=== PATIENT | female | born 1950 | race Caucasian/White ===

== ENCOUNTER → 2016-09-01 | Outpatient (CLI) | payer OTHER, MEDICARE | LOC: BMCIMAGING 10:12 | DX: Z12.31 Encounter for screening mammogram for malignant neoplasm of breast (principal); Z80.3 Family history of malignant neoplasm of breast | CPT/HCPCS: G0202 ==

== ENCOUNTER → 2017-09-24 | Outpatient (CLI) | payer OTHER, MEDICARE | LOC: BMCIMAGING 09:18 | PROVIDERS: ATTEND Internal Medicine | DX: Z12.31 Encounter for screening mammogram for malignant neoplasm of breast (principal); Z80.3 Family history of malignant neoplasm of breast ==

== ENCOUNTER → 2017-10-13 | Outpatient (CLI) | payer OTHER, MEDICARE | LOC: BMCIMAGING 10:38 | PROVIDERS: ATTEND Internal Medicine | DX: R92.8 Other abnormal and inconclusive findings on diagnostic imaging of breast (principal) ==

== ENCOUNTER → 2018-01-27 | Outpatient (CLI) | payer OTHER, MEDICARE | DX: M17.0 Bilateral primary osteoarthritis of knee (principal) ==

== ENCOUNTER 2018-02-22 07:15 | Observation (INO) | payer OTHER, MEDICARE ==
--- NOTE | 2018-02-22 06:47 | PDIAF ---
- Diagnosis Diagnosis: right knee djd Code Status: Full Code - Medication Management Discharge Medications: Medications to Continue on Transfer Aspirin [Aspirin 81mg (*)] 81 mg PO HS 01/25/18 [Last Taken Unknown] Calcium Carbonate [Oyster Shell Calcium 500 mg (*)] 500 mg PO BID 01/25/18 [ Last Taken Unknown] Cholecalciferol Vit D3 [Vitamin D3 (*)] 1,000 units PO BID 01/25/18 [Last Taken Unknown] Cyanocobalamin [Vitamin B12 (*)] 1,000 mcg PO DAILY 01/25/18 [Last Taken Unknown ] FLUoxetine [Prozac 20 MG (*)] 20 mg PO DAILY 01/25/18 [Last Taken Unknown] Pantoprazole Sodium [Protonix 40mg (*)] 40 mg PO HS 01/25/18 [Last Taken Unknown ] Discharge Medications: Refer to the Discharge Home Medication list for PRN reason. - Orders Services needed: Physical Therapy Isolation Type: None Diet Recommendation: no restrictions on diet Diet Texture: Regular Texture Diet Additional Instructions: TOTAL JOINT ARTHROPLASTY DISCHARGE INSTRUCTIONS 1. Your surgeon follows the [facility] protocol for reducing your risk of DVT (blood clots) following surgery. Medication will be ordered to prevent blood clots. A sudden increase in calf pain and/or swelling could indicate a blood clot in your leg. If this occurs, please call your surgeon or his/her radiology physician assistant. An ultrasound of the leg may be necessary to diagnose a blood clot. If you have conditions that make you a higher risk for blood clots, your surgeon may use more aggressive ways to prevent them. Notify your surgeon if you think you are a high risk for blood clots. 2. Wear your white surgical stockings (JAVIER hose) for 2 weeks. This decreases your swelling and may help prevent blood clots. It is ok to remove JAVIER hose at night time to give your legs a break. 3. Swelling and bruising in the surgical leg is common. If you feel that it is excessive, please notify your surgeon. 4. Elevate your surgical leg with the ankle above the hip several times every day. Please keep the leg straight when you elevate by putting pillows under your foot. Do not put pillows under your knee. This will make being able to fully straighten more difficult. This is uncomfortable, but try to do it as much as possible. 5. For total knee replacements use compressive wrap on your knee for 3-5 days after surgery, then you can discontinue it. 6. Use a walker or crutches for 1-2 weeks. Progress your weight-bearing as tolerated. You may start to use a cane when you feel stable and safe. 7. You will receive physical therapy instructions in the hospital. Continue those exercises at home. There are additional exercises in the total joint booklet you were given before surgery. Outpatient physical therapy will begin 7- 10 days after surgery. Please schedule this in advance. 8. Use ice on your knee at least 3-5 times every day for 30 minutes. This helps reduce pain and swelling. Also use it at night before falling asleep. 9. Leave your surgical dressing in place for 2 weeks. Your dressing is water resistant, but not waterproof. Cover it with Saran Wrap or Eyiix-v-Mspn before showering. You may shower as soon as you feel safe entering a shower. If you notice bleeding from your incision 2 or 3 days after surgery, please notify your surgeon. 10. Due to narcotics, decreased activity and altered diet, most patients experience constipation after surgery. Use dtyo-boa-ecvogze stool softeners while you are on narcotics. 11. You may drive a car when you are comfortable bearing weight, have good muscular control of your leg and are off narcotics. This usually occurs 2-4 weeks after surgery, depending on which leg was operated on. 12. If there are questions not addressed here, please refer the [facility] book given for more information. If you still have questions, please contact your surgeon s office. 13. If you have a life-threatening emergency, please call 911 and go to the emergency room immediately. For non-life threatening emergencies, please call your physicians office for advice before going to the emergency room. - Follow Up Care Current Providers and Referrals: Joaquín Fernando MD [Primary Care Provider] -
--- NOTE | 2018-02-22 06:47 | PDHPUP ---
History & Physical Update H&P update statement: This history and physical update is based on an assessment of the patient which was completed after admission or registration (within 24 hours), but prior to the surgery/procedure. H&P update: no change in patient's condition since H&P completed
[~2018-02-22 07:15] MED LIST: ROPIVACAINE 0.2% 80 MG, EPINEPHrine 0.2 MG, KETOROLAC TROMETHAMINE 30 MG, morphINE 10 M... IU ONE; TRANEXAMIC ACID 1,000 MG in NS 100 ML IV ONE
[2018-02-22] MEDS ORDERED: CALCIUM CHLORIDE 1 GM/10 ML INJ ONE (09:47)
[2018-02-22] MEDS ORDERED: THROMBIN (BOVINE) 5,000 UNIT VIAL TP ONE (09:47)
[2018-02-22] MEDS ORDERED: ceFAZolin 1 GM/5 ML SYR ONE (09:47)
[2018-02-22] MEDS ORDERED: FAMOTIDINE 20 MG TAB PO ONE (10:32)
[2018-02-22] MEDS ORDERED: ACETAMINOPHEN 325 MG TAB PO ONE (10:32)
[2018-02-22] MEDS ORDERED: ceFAZolin 2 GM/DEXTROSE 100 ML IV ONE (10:32)
[2018-02-22] MEDS ORDERED: LR 1,000 ML IV ONE (10:33)
--- NOTE | 2018-02-22 11:36 | PDANEPAE ---
ANE History of Present Illness OA here for R TKA ANE Past Medical History - Cardiovascular History Hx Hypertension: No Hx Arrhythmias: Yes Hx Chest Pain: No Hx Coronary Artery / Peripheral Vascular Disease: No Hx CHF / Valvular Disease: No Hx Palpitations: No Cardiovascular History Comment: hx of torsades during abd sx 2013 - Pulmonary History Hx COPD: No Hx Asthma/Reactive Airway Disease: Yes Hx Recent Upper Respiratory Infection: No Hx Oxygen in Use at Home: No Hx Sleep Apnea: No Sleep Apnea Screening Result - Last Documented: Negative Pulmonary History Comment: exercise induced asthma - Neurologic History Hx Cerebrovascular Accident: No Hx Seizures: No Hx Dementia: No - Endocrine History Hx Diabetes: No - Renal History Hx Renal Disorders: No Renal History Comment: incontinence- wears depends - Liver History Hx Hepatic Disorders: No - Neurological & Psychiatric Hx Hx Neurological and Psychiatric Disorders: Yes Neurological / Psychiatric History Comment: DEPRESSION - Cancer History Hx Cancer: No Cancer History Comment: mother- hx breast ca - Congenital Disorder History Hx Congenital Disorders: No - GI History Hx Gastrointestinal Disorders: Yes Gastrointestinal History Comment: current hiatel hernia. ulcerative colitis. anal leakage. - Other Health History Other Health History: ECZEMA ON HANDS. hx anemia 2008- none since. osteoarthritis hips and knees. 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 cysts exc l ear and 2008. 2010- l total hip replacement. 1972- r femur surgery for fx. 1986-ing hernia repair ANE Review of Systems Review of Systems: - Exercise capacity Exercise capacity: >=4 METS ANE Patient History - Allergies Allergies/Adverse Reactions: lactose [Lactose] Allergy (Intermediate, Verified 08/07/09 09:02) GI UPSET, DIARRHEA oxycodone HCl [From Percocet] Allergy (Unknown, Verified 02/12/18 16:43) Other-Enter Comments - Home Medications Home Medications: Aspirin [Aspirin 81mg (*)] 81 mg PO HS 01/25/18 [Last Taken Unknown] Calcium Carbonate [Oyster Shell Calcium 500 mg (*)] 500 mg PO BID 01/25/18 [ Last Taken 02/13/18] Cholecalciferol Vit D3 [Vitamin D3 (*)] 1,000 units PO BID 01/25/18 [Last Taken 02/13/18] Cyanocobalamin [Vitamin B12 (*)] 1,000 mcg PO DAILY 01/25/18 [Last Taken ] FLUoxetine [Prozac 20 MG (*)] 20 mg PO DAILY 01/25/18 [Last Taken 02/22/18] Pantoprazole Sodium [Protonix 40mg (*)] 40 mg PO HS 01/25/18 [Last Taken ] - NPO status NPO Status: no food or drink >8 hours NPO Since - Liquids (Date): 02/22/18 NPO Since - Liquids (Time): 07:00 NPO Since - Solids (Date): 02/21/18 NPO Since - Solids (Time): 20:30 - Smoking Hx Smoking Status: Never smoked - Alcohol Use Alcohol Use: Rarely - Family Anes Hx Family Anes Hx: none Family Hx Anesthesia Complications: denies ANE Labs/Vital Signs - Vital Signs Blood Pressure: 131/64 Heart Rate: 64 Respiratory Rate: 16 O2 Sat (%): 93 Height: 170.18 cm Weight: 68.946 kg ANE Physical Exam - Airway Neck exam: FROM Mallampati Score: Class 2 Mouth exam: normal dental/mouth exam - Pulmonary Pulmonary: no respiratory distress, clear to auscultation - Cardiovascular Cardiovascular: regular rate and rhythym, no murmur, rub, or gallop - ASA Status ASA Status: II ANE Anesthesia Plan Anesthesia Plan: GA with mask, spinal Regional Anesthesia: single shot NB, adductor canal FNB
[2018-02-22] MEDS ORDERED: MIDAZOLAM 2 MG/2 ML VIAL IVP ONE (11:37)
[2018-02-22] MEDS ORDERED: PROPOFOL/EMULSION 500 MG/50 ML BOTTLE IV ONE ×2 (11:44→14:45)
[2018-02-22] MEDS ORDERED: ePHEDrine SULFATE 25 MG/5 ML SYR ONE (14:18)
[2018-02-22] MEDS ORDERED: ROPIVACAINE HCL 150 MG/30 ML INJ ONE (14:34)
[2018-02-22] MEDS ORDERED: clonIDINE 1 MG/10 ML VIAL EP ONE (14:35)
[2018-02-22] MEDS ORDERED: TEMAZEPAM 15 MG CAP PO PRN (15:09)
[2018-02-22] MEDS ORDERED: PROMETHAZINE HCL 25 MG SUPPR PR PRN (15:09)
[2018-02-22] MEDS ORDERED: MAGNESIUM HYDROXIDE 30 ML UDCUP PO PRN (15:09)
[2018-02-22] MEDS ORDERED: diphenhydrAMINE 25 MG CAP PO PRN (15:09)
[2018-02-22] MEDS ORDERED: BISACODYL 10 MG SUPP PR PRN (15:09)
[2018-02-22] MEDS ORDERED: LACTULOSE 20 GM/30 ML UDCUP PO PRN (15:09)
[2018-02-22] MEDS ORDERED: POLYETHYLENE GLYCOL 3350 17 GM PKT PO PRN (15:09)
[2018-02-22] MEDS ORDERED: DIPHENOXYLATE/ATROPINE LOMOTIL 1 TAB PO PRN (15:09)
[2018-02-22] MEDS ORDERED: ONDANSETRON DISINTEGRATING 4 MG TAB PO PRN (15:09)
[2018-02-22] MEDS ORDERED: PROMETHAZINE HCL 25 MG/ML INJ IVP PRN (15:09)
[2018-02-22] MEDS ORDERED: ONDANSETRON 4 MG/2 ML VIAL IVP PRN (15:09)
--- NOTE | 2018-02-22 15:09 | POSTOPPROG ---
Post Op Note Date of Operation: 02/22/18 Surgeon: Tavares Bobo Job Change Crew Member: get Anesthesiologist: gaurang Anesthesia: Spinal Pre-op Diagnosis: right knee djd Post-op Diagnosis: same Indication: same Procedure: right tka Inf/Abcess present in the surg proc area at time of surgery?: No Depth: Deep Incisional (Fascial) EBL: 50-100 Drains: Hemovac
[2018-02-22] MEDS ORDERED: fentaNYL 100 MCG/2 ML INJ IVP PRN (15:26)
[2018-02-22] MEDS ORDERED: ACETAMINOPHEN 500 MG TAB PO PRN (15:26)
[2018-02-22] MEDS ORDERED: HYDROCODONE/APAP 5/325 TAB PO PRN (15:26)
[2018-02-22] MEDS ORDERED: NALOXONE HCL 0.4 MG/ML INJ IVP PRN (15:26)
--- NOTE | 2018-02-22 15:27 | POSTANESTH ---
Post Anesthetic Evaluation Cardiovascular Status: Normal, Stable, Similar to Pre-Op Cond Respiratory Status: Normal, Stable, Similar to Pre-op Cond. Level of Consciousness/Mental Status: Can Participate in Eval, Alert and Oriented Pain Control: Adequate, Prn Tx Ordered Nausea/Vomiting Control: Adequate, Prn Tx Ordered Complications Possibly Related to Anesthesia: None Noted
[2018-02-22] MEDS: LR 1,000 ML IV SCH (17:06)
[2018-02-22] MEDS ORDERED: ACETAMINOPHEN 325 MG TAB PO PRN (18:00)
[2018-02-22] MEDS ORDERED: PANTOPRAZOLE SODIUM 40 MG TAB PO SCH (21:00)
[2018-02-22] MEDS: SENNOSIDES/DOCUSATE SODIUM TAB PO SCH (21:31)
[2018-02-22] MEDS: TRANEXAMIC ACID 650 MG TAB PO SCH (21:31)
[2018-02-22] MEDS: ASPIRIN 325 MG TAB PO SCH (21:32)
[2018-02-22] MEDS: FAMOTIDINE 20 MG TAB PO SCH (21:32)
[2018-02-22] MEDS: CALCIUM CARBONATE 500 MG TAB PO SCH (21:32)
[2018-02-22] MEDS: HYDROCODONE/APAP 5/325 TAB PO PRN (21:33)
[2018-02-22] MEDS: ceFAZolin 2 GM/DEXTROSE 100 ML IV SCH (21:35)
[2018-02-22] MEDS: CYCLOBENZAPRINE 10 MG TAB PO PRN (23:34)
[2018-02-23] MEDS: LR 1,000 ML IV SCH (01:57)
[2018-02-23] MEDS: ceFAZolin 2 GM/DEXTROSE 100 ML IV SCH (05:11)
--- NOTE | 2018-02-23 07:08 | PDIAF ---
- Diagnosis Diagnosis: right knee djd Code Status: Full Code - Medication Management Discharge Medications: Medications to Continue on Transfer Calcium Carbonate [Oyster Shell Calcium 500 mg (*)] 500 mg PO BID 01/25/18 [ Last Taken 02/13/18] Cholecalciferol Vit D3 [Vitamin D3 (*)] 1,000 units PO BID 01/25/18 [Last Taken 02/13/18] Cyanocobalamin [Vitamin B12 (*)] 1,000 mcg PO DAILY 01/25/18 [Last Taken ] FLUoxetine [Prozac 20 MG (*)] 20 mg PO DAILY 01/25/18 [Last Taken 02/22/18] Pantoprazole Sodium [Protonix 40mg (*)] 40 mg PO HS 01/25/18 [Last Taken ] Hydrocodone/APAP 5/325 [Windom 5/325 (*)] 2 tab PO Q4HRS PRN #50 tab 02/23/18 [ Last Taken Unknown] Discharge Medications: Refer to the Discharge Home Medication list for PRN reason. - Orders Services needed: Physical Therapy Isolation Type: None Diet Recommendation: no restrictions on diet Diet Texture: Regular Texture Diet Additional Instructions: TOTAL JOINT ARTHROPLASTY DISCHARGE INSTRUCTIONS 1. Your surgeon follows the [facility] protocol for reducing your risk of DVT (blood clots) following surgery. Medication will be ordered to prevent blood clots. A sudden increase in calf pain and/or swelling could indicate a blood clot in your leg. If this occurs, please call your surgeon or his/her preschool assistant principal. An ultrasound of the leg may be necessary to diagnose a blood clot. If you have conditions that make you a higher risk for blood clots, your surgeon may use more aggressive ways to prevent them. Notify your surgeon if you think you are a high risk for blood clots. 2. Wear your white surgical stockings (JAVIER hose) for 2 weeks. This decreases your swelling and may help prevent blood clots. It is ok to remove JAVIER hose at night time to give your legs a break. 3. Swelling and bruising in the surgical leg is common. If you feel that it is excessive, please notify your surgeon. 4. Elevate your surgical leg with the ankle above the hip several times every day. Please keep the leg straight when you elevate by putting pillows under your foot. Do not put pillows under your knee. This will make being able to fully straighten more difficult. This is uncomfortable, but try to do it as much as possible. 5. For total knee replacements use compressive wrap on your knee for 3-5 days after surgery, then you can discontinue it. 6. Use a walker or crutches for 1-2 weeks. Progress your weight-bearing as tolerated. You may start to use a cane when you feel stable and safe. 7. You will receive physical therapy instructions in the hospital. Continue those exercises at home. There are additional exercises in the total joint booklet you were given before surgery. Outpatient physical therapy will begin 7- 10 days after surgery. Please schedule this in advance. 8. Use ice on your knee at least 3-5 times every day for 30 minutes. This helps reduce pain and swelling. Also use it at night before falling asleep. 9. Leave your surgical dressing in place for 2 weeks. Your dressing is water resistant, but not waterproof. Cover it with Saran Wrap or Funnr-x-Thgv before showering. You may shower as soon as you feel safe entering a shower. If you notice bleeding from your incision 2 or 3 days after surgery, please notify your surgeon. 10. Due to narcotics, decreased activity and altered diet, most patients experience constipation after surgery. Use fdlh-wtu-pnnynqr stool softeners while you are on narcotics. 11. You may drive a car when you are comfortable bearing weight, have good muscular control of your leg and are off narcotics. This usually occurs 2-4 weeks after surgery, depending on which leg was operated on. 12. If there are questions not addressed here, please refer the [facility] book given for more information. If you still have questions, please contact your surgeon s office. 13. If you have a life-threatening emergency, please call 911 and go to the emergency room immediately. For non-life threatening emergencies, please call your physicians office for advice before going to the emergency room. - Follow Up Care Current Providers and Referrals: Joaquín Fernando MD [Primary Care Provider] -
--- NOTE | 2018-02-23 07:10 | SOAPPROG ---
SOAP Progress Note Assessment/Plan: Assessment: s/p tka Plan: dvt precautions reviewed progress with pt d/c when cleared to go home f/u at two weeks 02/23/18 07:08 Subjective: mild pain no cp or sob delroy po Objective: Vital Signs Temp Pulse Resp BP Pulse Ox 36.6 C 57 L 16 95/54 L 90 L 02/23/18 04:00 02/23/18 04:00 02/23/18 04:00 02/23/18 04:00 02/23/18 04:00 Laboratory Results 02/23/18 04:42 02/22/18 02/23/18 02/24/18 05:59 05:59 05:59 Intake Total 3305 Output Total 300 Balance 3005 dressing intact intact pf, df,,ehl toes warm and pink stevenson neg homans stevenson xrays 2 mm lateral overhang on tibia, neutral limb alignment, symmetric joint space ICD10 Worksheet Patient Problems: Problems Problem Status Onset Abnormal ECG Acute C. difficile diarrhea Acute ~01/01/17 Cardiac arrest Acute Paraesophageal hernia Acute
[2018-02-23] MEDS: ASPIRIN 325 MG TAB PO SCH (08:23)
[2018-02-23] MEDS: CALCIUM CARBONATE 500 MG TAB PO SCH (08:24)
[2018-02-23] MEDS: FAMOTIDINE 20 MG TAB PO SCH (08:24)
[2018-02-23] MEDS: SENNOSIDES/DOCUSATE SODIUM TAB PO SCH (08:25)
[2018-02-23] MEDS: TRANEXAMIC ACID 650 MG TAB PO SCH (08:27)
[2018-02-23] MEDS ORDERED: FLUoxetine 20 MG CAP PO SCH (09:00)
[2018-02-23] MEDS ORDERED: CYANO/VITAMIN B12 1000 MCG TAB PO SCH (09:00)
[2018-02-23] MEDS: CYCLOBENZAPRINE 10 MG TAB PO PRN (09:48)
[2018-02-23] MEDS: HYDROCODONE/APAP 5/325 TAB PO PRN ×2 (10:37→14:09)
[2018-02-23 11:54] VITALS: BP 97/62
--- NOTE | 2018-02-23 12:13 | ASMTLACE ---
TAE Length of stay for Answers: 2 days current admission Acuity / Level of Answers: No Care: Did the patient have an inpatient admission? Comorbidities - select Answers: Opioid dependence all that apply / Chronic pain # of Emergency department Answers: 0 visits in the last 6 months Social determinants Answers: Mental health diagnosis (anxiety, depression, pers onality disorders, etc.) Score: 9 Date Signed: 02/23/2018 12:12 PM Electronically Signed By:MYLA Ring
--- NOTE | 2018-02-23 12:19 | ASMTCMCOM ---
CM Note CM Note Notes: Pt had OA of knee. Pt medically stable for d/c with [facility]. Orders to be obtained via [facility]. Date Signed: 02/23/2018 12:19 PM Electronically Signed By:MYLA Ring
--- NOTE | 2018-02-24 09:43 | ASDISCHSUM ---
Discharge Information Plan Status:Home with Home Health Medically Cleared to Leave: Discharge Date:02/23/2018 02:19 PM CM D/C Disposition: ADT D/C Disposition:Home Health Service Projected Discharge Date:02/23/2018 11:00 AM Transportation at D/C: Discharge Delay Reason: Follow-Up Date:02/23/2018 11:00 AM Discharge Slot: Final Diagnosis: Placement Information Referral Type:*Home Health Care Services Referral ID:[id number] Provider Name:[facility] Address 1:[address] [address] Address 2: City:[place] Selection Factors: State:[place] Patient Contact Information Contact Name:SAY Relationship: Address:[address] City:[place] Alternate Phone: State/Zip Code:[place] [address] Email: Financial Information Financial Class:Medicare Primary Plan Desc:MEDICARE OUTPATIENT Primary Plan Number:[id number] Secondary Plan Desc:BRUCE/ADELAIDA SUPPLEMENT Secondary Plan Number:[id number] Assessment Information LACE LACE Length of stay for Answers: 2 days current admission Acuity / Level of Answers: No Care: Did the patient have an inpatient admission? Comorbidities - select Answers: Opioid dependence all that apply / Chronic pain # of Emergency department Answers: 0 visits in the last 6 months Social determinants Answers: Mental health diagnosis (anxiety, depression, pers onality disorders, etc.) Score: 9 Date Signed: 02/23/2018 12:12 PM Electronically Signed By:MYLA Ring [facility] CM Progress Note CM Note CM Note Notes: Pt had OA of knee. Pt medically stable for d/c with [facility] PT. Orders to be obtained via [employer]. Date Signed: 02/23/2018 12:19 PM Electronically Signed By:MYLA Ring Intervention Information Intervention Type:*Incorrect Registration Date of Service:02/22/2018 03:39 PM Patient Type:Inpatient Staff Member:Christal Lewis Hours: Discipline: Severity: Comment:
--- NOTE | 2018-02-27 07:14 | GDS ---
ADMISSION DIAGNOSIS: Right knee degenerative joint disease. DISCHARGE DIAGNOSIS: Right knee degenerative joint disease. PROCEDURE: Right total knee arthroplasty-MAKOplasty. OPERATIVE INDICATIONS: The patient is a 67-year-old woman with end-stage arthritis to the right knee . Clinical and radiographic features are consistent with this. She has failed all attempts at conse rvative management. I have recommended operative intervention. HOSPITAL COURSE: She was admitted to the hospital for an uncomplicated total knee arthroplasty. She tolerated the procedure well. Overnight, she had no complications. At the time of discharge, she i s tolerating an oral diet. Pain was well controlled on oral medicines. She is voiding without diffi culty. Dressing was clean, dry, and intact. She has negative Sonia's bilaterally. X-rays are stabl e, in anatomic alignment. No fracture or lucency. DISCHARGE ACTIVITY: Weightbearing as tolerated. Range of motion as tolerated. Keep dressing clean, dry, and intact. Seek attention for increasing redness, swelling, drainage. FOLLOWUP: In 2 weeks. DISCHARGE MEDICATIONS: Oxycodone 5 mg 1-2 every 6 hours p.r.n. pain, aspirin 325 mg p.o. daily. /[id number]/MODL
--- NOTE | 2018-02-27 07:35 | GOP ---
DATE OF OPERATION: 02/22/2018 SURGEON: Tavares Bobo MD ASSISTANT LIBRARIAN: Kevin Zarco, surgical services asst, who was a medical necessity for the entirety of the case. PREOPERATIVE DIAGNOSIS: Right knee degenerative joint disease. POSTOPERATIVE DIAGNOSIS: Right knee degenerative joint disease. PROCEDURE PERFORMED: Right total knee arthroplasty, MAKOplasty. FINDINGS: SPECIMENS: To Pathology, bony cuts. INDICATIONS: The patient is a 67-year-old woman with end-stage arthritis to her right knee. Clinica l and radiographic features are consistent with this. She has failed all attempts at conservative ma nagement. I have, therefore, recommended operative intervention. I have outlined the surgical proce dure, risks, benefits, and alternatives. She wished to proceed. Written consent was signed and plac ed in the patient's chart. DESCRIPTION OF PROCEDURE: The patient was identified in the preanesthesia area. The right knee was clearly demarcated as the operative site with an indelible marker. She was given 2 g of Ancef intrav enously en route to the operative suite. In the OR, a spinal anesthetic was placed, followed by angely tion. Attention was turned to the right knee, which was sterilely prepped and draped in the usual fa shion. Tourniquet was applied to the upper thigh. The limb was then sterilely prepped and draped in the usual fashion. A standard anterior midline incision was made. Thick subcutaneous flaps were el evated, followed by a medial parapatellar arthrotomy. Subperiosteal elevation was carried out to the mid-coronal plane. The knee demonstrated tricompartmental arthritis. Therefore, 2 pins were then p laced across the medial femur to the lateral. The femoral reference array was affixed. Femoral and tibial check points were placed. A mid-tibia percutaneous incision was made, and 2 pins were placed for the tibial reference array. The bony landmarks of the knee were then entered into the computer i n a standard fashion. The knee was balanced through the flexion-extension arc. Ultimately, resectio ns were made for a size 5 femur and a size 5 tibia using the MAKOplasty technique. Trial reduction was carried out, and ultimately, a 5 x 11 mm thick polyethylene spacer was selected. This allowed full flexion and extension without instability throughout the flexion-extension arc. T he trial components were withdrawn. In a press-fit technique, the tibial and femoral components were placed, followed by placement of the 5 x 11 mm polyethylene spacer. This confirmed to be fully seat ed. The knee was stable through flexion-extension arc as previously. The patella was then everted, cut in a freehand cutting technique, and a drill hole was made for a size 35 mm metal-backed poly pat fausto. The kneecap tracked centrally through the flexion-extension arc. The final implant was then p laced and confirmed to be fully seated. The wound was copiously irrigated with pulse lavage solution . The capsule and tissues were injected with a joint cocktail of ropivacaine, morphine, Toradol, and epinephrine. Medial parapatellar arthrotomy was closed using a #1 Ethibond suture. The knee was in stilled with platelet-rich plasma. The subcutaneous tissue was closed using 2-0 Monocryl, and the sk in was closed using ZipLine skin closure. Sterile dressing was applied. The patient was awakened, e xtubated, and taken to the recovery room in good stable condition. TOTAL TOURNIQUET TIME: 55 minutes. COMPLICATIONS: None. IMPLANTS: Lars Triathlon posterior stabilized femoral component size 5, size 5 tibia, 5 x 11 mm p olyethylene spacer, and a 35 asymmetric patella. DISPOSITION: To the recovery room and then the floor. She was weightbearing and range of motion as tolerated and will follow the standard recovery. /[id number]/MODL
== END 2018-02-23 14:19 | disposition home health service (06) ==
LOC: F3N 10:06 → INTOOBSV 10:06 → F3N 16:28
PROVIDERS: ADMIT Orthopaedic Surgery; ATTEND Orthopaedic Surgery
PROC: 0SRC0JZ Replacement of Right Knee Joint with Synthetic Substitute, Open Approach (ICD-10-PCS; principal; 2018-02-22 12:00)
DX: M17.11 Unilateral primary osteoarthritis, right knee (principal)
CPT/HCPCS: 27447; 73560; 88311; 97116; 97161; 97165; 97535; C1776; G8978; G8979; G8980; G8987; G8988; G8989; J0171; J0690; J0735; J1885; J2250; J2270; J2704; J2795

== ENCOUNTER → 2018-04-05 | Outpatient (CLI) | payer OTHER, MEDICARE | LOC: BMCIMAGING 10:46 → EDSTATUS 10:47 → BMCIMAGING 10:48 | PROVIDERS: ATTEND Physician Assistant | DX: Z47.1 Aftercare following joint replacement surgery (principal); Z96.651 Presence of right artificial knee joint ==

== ENCOUNTER → 2018-05-10 | Outpatient (CLI) | payer OTHER, MEDICARE | LOC: BMCIMAGING 08:59 | PROVIDERS: ATTEND Orthopaedic Surgery | DX: Z09 Encounter for follow-up examination after completed treatment for conditions other than malignant neoplasm (principal); Z96.651 Presence of right artificial knee joint ==

== ENCOUNTER 2018-07-02 05:03 | Observation (INO) | payer OTHER, MEDICARE ==
--- NOTE | 2018-07-02 05:07 | EDPHY ---
H & P Source: Patient - Medical/Surgical History Hx Asthma: Yes Hx Chronic Respiratory Disease: No Hx Diabetes: No Hx Cardiac Disease: No Hx Renal Disease: No Hx Cirrhosis: No Hx Alcoholism: No Hx HIV/AIDS: No Hx Splenectomy or Spleen Trauma: No Other PMH: Hernia Repair in August 2013, aborted revision 05/12 d/t intra op arrest/complications - Social History Smoking Status: Never smoked Time Seen by Provider: 07/02/18 05:06 HPI/ROS: HPI CHIEF COMPLAINT: Nausea vomiting diarrhea. HISTORY OF PRESENT ILLNESS: 67-year-old female presents to the emergency room with nausea vomiting diarrhea. States started around 7:00 p.m. Last night or close to 12 hr ago. States he vomited multiple times mainly watery. No blood. Also has had watery diarrhea. Abdominal cramping. No chest pain or shortness of breath. Does feel globally weak. States she may have the flu. No fever. She reports that her had the same illness few days ago and has recovered. Past Medical History: GERD, Intra-operative Cardiac arrest/Qt Prolongation, Vfib arrest Past Surgical History: Orthopedic surgery right knee, hernia repair Social History: Denies drugs alcohol tobacco. Family History: Noncontributory. ROS REVIEW OF SYSTEMS: 10 Systems were reviewed and negative with the exception of the elements mentioned in the history of present illness. Exam Constitutional elderly, nontoxic, triage nursing summary reviewed, vital signs reviewed, awake/alert. Vital signs noted at triage stable. Afebrile. Eyes normal conjunctivae and sclera, EOMI, PERRLA. HENT normal inspection, atraumatic, moist mucus membranes, no epistaxis, neck supple/ no meningismus, no raccoon eyes. Respiratory clear to auscultation bilaterally, normal breath sounds, no respiratory distress, no wheezing. Cardiovascular rate normal, regular rhythm, no murmur, no edema, distal pulses normal. Gastrointestinal soft, non-tender, no rebound, no guarding, normal bowel sounds, no distension, no pulsatile mass. Genitourinary no CVA tenderness. Musculoskeletal no midline vertebral tenderness, full range of motion, no calf swelling, no tenderness of extremities, no meningismus, good pulses, neurovascularly intact. Skin pink, warm, & dry, no rash, skin atraumatic. Neurologic awake, alert and oriented x 3, AAOx3, moves all 4 extremities equally, motor intact, sensory intact, CN II-XII intact, normal cerebellar, normal vision, normal speech. Psychiatric normal mood/affect. Heme/Lymph/Immune no lymphadenopathy. Differential Diagnosis: Differential diagnosis includes but is not limited to and in no particular order: Bowel obstruction, appendicitis, gallbladder disease, diverticulitis, colitis, enteritis, perforated viscus, gastritis, GERD , esophagitis, urinary tract infection, pyelonephritis, kidney stones Medical Decision Making: Plan for this patient IV establishment IV fluid bolus 2 L normal saline, IV Phenergan 6.25 mg, basic electrolytes, UA, GI studies abdominal labs and re-evaluate. Re-evaluation: 0625: Patient re-evaluated this time feeling better after 500 cc of fluid and Phenergan. Still getting more fluid at this time. Urinalysis is been ordered As well as GI studies. Signed over to Dr. Wade at 7:00 a.m. Shift change. Will need re-evaluation. (Timothy Daugherty) Constitutional: Initial Vital Signs Temperature (C) 36.4 C 07/02/18 05:10 Heart Rate 95 07/02/18 05:10 Respiratory Rate 24 H 07/02/18 05:10 Blood Pressure 114/82 H 07/02/18 05:10 O2 Sat (%) 99 07/02/18 05:10 O2 Delivery Mode Room Air Allergies/Adverse Reactions: lactose [Lactose] Allergy (Intermediate, Verified 08/07/09 09:02) GI UPSET, DIARRHEA oxycodone HCl [From Percocet] Allergy (Unknown, Verified 02/12/18 16:43) Other-Enter Comments oxycodone HCl Allergy (Unknown, Uncoded 02/23/18 10:12) Other-Enter Comments Home Medications: Medication Instructions Recorded Calcium Carbonate [Oyster Shell 500 mg PO BID 01/25/18 Calcium 500 mg (*)] Cholecalciferol Vit D3 [Vitamin D3 1,000 units PO BID 01/25/18 (*)] Cyanocobalamin [Vitamin B12 (*)] 1,000 mcg PO DAILY 01/25/18 FLUoxetine [Prozac 20 MG (*)] 20 mg PO DAILY 01/25/18 Pantoprazole Sodium [Protonix 40mg 40 mg PO HS 01/25/18 (*)] Promethazine HCl 25 mg PO Q6-8PRN PRN #10 tablet 07/02/18 Medical Decision Making ED Course/Re-evaluation: 7:00 a.m.-I assumed care of this patient at shift change. She presents with vomiting and diarrhea, onset 12 hr ago. She has received IV normal saline 1 L and Phenergan 6.25 mg IV. Nausea has improved, continues to feel weak and chilled. Abdomen is soft and nontender. Will observe. At 9:00 a.m.-patient continues to vomit and feels very weak. Abdominal exam remains benign. Clinical presentation consistent with acute gastroenteritis. Repeat dose of Phenergan 6.25 mg IV given. The hospitalist service was consulted for admission. (Any Wade) Differential Diagnosis: Differential diagnosis includes though it is not limited to appendicitis, cholecystitis, diverticulitis, pyelonephritis, bowel perforation, small bowel obstruction. (Any Wade) - Data Points Laboratory Results: Laboratory Results 07/02/18 05:30 07/02/18 05:30 07/02/18 07/02/18 07/02/18 05:30 05:30 05:30 WBC 10.44 10^3/uL H 10^3/uL (3.80-9.50) RBC 4.79 10^6/uL 10^6/uL (4.18-5.33) Hgb 14.0 g/dL g/dL (12.6-16.3) Hct 40.8 % % (38.0-47.0) MCV 85.2 fL fL (81.5-99.8) MCH 29.2 pg pg (27.9-34.1) MCHC 34.3 g/dL g/dL (32.4-36.7) RDW 12.9 % % (11.5-15.2) Plt Count 370 10^3/uL 10^3/uL (150-400) MPV 9.7 fL fL (8.7-11.7) Neut % (Auto) 93.9 % H % (39.3-74.2) Lymph % (Auto) 2.9 % L % (15.0-45.0) [place] % (Auto) 2.5 % L % (4.5-13.0) Eos % (Auto) 0.0 % L % (0.6-7.6) Baso % (Auto) 0.3 % % (0.3-1.7) Nucleat RBC Rel Count 0.0 % % (0.0-0.2) Absolute Neuts (auto) 9.80 10^3/uL H 10^3/uL (1.70-6.50) Absolute Lymphs (auto) 0.30 10^3/uL L 10^3/uL (1.00-3.00) Absolute Monos (auto) 0.26 10^3/uL L 10^3/uL (0.30-0.80) Absolute Eos (auto) 0.00 10^3/uL L 10^3/uL (0.03-0.40) Absolute Basos (auto) 0.03 10^3/uL 10^3/uL (0.02-0.10) Absolute Nucleated RBC 0.00 10^3/uL 10^3/uL (0-0.01) Immature Gran % 0.4 % % (0.0-1.1) Immature Gran # 0.04 10^3/uL 10^3/uL (0.00-0.10) RBC/WBC/PLT Morphology TNP Platelet Estimate TNP Sodium 137 mEq/L mEq/L (135-145) Potassium 4.9 mEq/L mEq/L (3.5-5.2) Chloride 108 mEq/L mEq/L (97-110) Carbon Dioxide 15 mEq/l L mEq/l (22-31) Anion Gap 14 mEq/L mEq/L (6-14) BUN 24 mg/dL H mg/dL (7-23) Creatinine 0.7 mg/dL mg/dL (0.6-1.0) Estimated GFR > 60 Glucose 238 mg/dL H mg/dL (70-100) Calcium 9.7 mg/dL mg/dL (8.5-10.4) Total Bilirubin 1.4 mg/dL mg/dL (0.1-1.4) Conjugated Bilirubin 0.3 mg/dL mg/dL (0.0-0.5) Unconjugated Bilirubin 1.1 mg/dL mg/dL (0.0-1.1) AST 25 IU/L IU/L (14-46) ALT 18 IU/L IU/L (9-52) Alkaline Phosphatase 83 IU/L IU/L (38-126) Total Protein 7.6 g/dL g/dL (6.3-8.2) Albumin 4.7 g/dL g/dL (3.5-5.0) Lipase 22 IU/L L IU/L (23-300) Nasal Influenza A PCR NEGATIVE FOR FLU A (NEGATIVE) Nasal Influenza B PCR NEGATIVE FOR FLU B (NEGATIVE) Medications Given: Discontinued Medications Sodium Chloride (Ns) 1,000 mls @ 0 mls/hr IV EDNOW ONE; Wide Open PRN Reason: Protocol Stop: 07/02/18 05:15 Last Admin: 07/02/18 05:27 Dose: 1,000 mls Sodium Chloride (Ns) 1,000 mls @ 0 mls/hr IV EDNOW ONE; Wide Open PRN Reason: Protocol Stop: 07/02/18 05:15 Last Admin: 07/02/18 05:26 Dose: 1,000 mls Promethazine HCl (Phenergan) 6.25 mg IVP ONCE ONE Stop: 07/02/18 05:15 Last Admin: 07/02/18 05:26 Dose: 6.25 mg Promethazine HCl (Phenergan) 6.25 mg IVP ONCE ONE Stop: 07/02/18 08:51 Last Admin: 07/02/18 08:54 Dose: 6.25 mg Departure - Departure Disposition: [facility] Inpatient Acute Clinical Impression: Vomiting Qualifiers: Vomiting type: unspecified Vomiting Intractability: non-intractable Nausea presence: with nausea Qualified Code(s): R11.2 - Nausea with vomiting, unspecified Diarrhea Qualifiers: Diarrhea type: unspecified type Qualified Code(s): R19.7 - Diarrhea, unspecified Condition: Fair Instructions: Dehydration (ED), Acute Nausea and Vomiting (ED), Acute Diarrhea (ED) Additional Instructions: 1. [place] diet over the next 48 hr 2. No spicy fatty greasy foods. 3. Return if worse to the Emergency Department. Referrals: Joaquín Fernando MD [Primary Care Provider] - As per Instructions Prescriptions: Promethazine HCl 25 mg PO Q6-8PRN PRN #10 tablet PRN Reason: Nausea/Vomiting, Use 1st
[2018-07-02] MEDS ORDERED: PROMETHAZINE HCL 25 MG/ML INJ IVP ONE ×2 (05:14→08:50)
[2018-07-02] MEDS ORDERED: NS 1,000 ML IV ONE ×2 (05:14)
[2018-07-02 05:41] LABS: PLATELET COUNT 370 10^3/uL (150-400)
[2018-07-02] MEDS ORDERED: ONDANSETRON 4 MG/2 ML VIAL IVP ONE (08:49)
[2018-07-02] MEDS ORDERED: IBUPROFEN 600 MG TAB PO ONE ×2 (09:55→09:57)
[2018-07-02] MEDS ORDERED: ONDANSETRON 4 MG/2 ML VIAL IVP PRN (11:01)
[2018-07-02] MEDS ORDERED: ONDANSETRON DISINTEGRATING 4 MG TAB PO PRN (11:01)
[2018-07-02] MEDS ORDERED: diphenhydrAMINE 25 MG CAP PO PRN (11:01)
[2018-07-02] MEDS ORDERED: ACETAMINOPHEN 325 MG TAB PO PRN (11:01)
[2018-07-02] MEDS ORDERED: LORazepam 2 MG/ML INJ IVP PRN (11:01)
[2018-07-02] MEDS: NS W/ 20 KCl/L 1,000 ML IV SCH ×2 (11:26→21:27)
[2018-07-02] MEDS: PROMETHAZINE HCL 25 MG/ML INJ IVP PRN ×2 (11:52→19:41)
--- NOTE | 2018-07-02 13:22 | PDGENHP ---
History and Physical History and Physical: Chief complaint: nausea and vomiting History of present illness: The pt is a 67yo F who p/w intractable vomiting, nausea, and diarrhea after her had been ill with the same symptoms. His symptoms cleared up within 2-3 days, but she picked up the same illness last night around 7pm. As the night progressed, she could not take the dehydration anymore and was unable to walk, so she arrived at the ED early this AM. Symptoms are better with nothing. Symptoms are worse with nothing. Vomitus this AM was black one time, but the other times were bilious. Diarrhea is red and she notes blood on tissue when she wipes. Other associated symptoms: fever, chills, abdominal cramping. She did not faint. Past medical history: GERD, UC in remission, occasional vomiting, depression. Past surgical history: R knee replacement, L hip replacement. Medications: please see med rec form. Allergies: lactose, oxycodone. Social history: and lives with . Retired office services assistant. Denies tobacco or drugs. Glass of wine 1-2 times a week. Family history: Father - PA, CVA. Mother - unk. Review of systems: 10 point review of systems was conducted and is negative except per HPI Physical exam: Vitals: Reviewed General: The patient is a female who is alert and in no acute distress. HEENT: normocephalic, extraocular movements intact, conjunctivae clear, no lesions on face. Mucous membranes moist. Neck: trachea midline, no visible masses, no external lesions. CV: +S1/S2, RRR, no MRG. Resp: unlabored, CTAB no RRW. Abd: soft and nondistended. Nontender throughout to superficial palpation. Mildly tender to deep palpation throughout. Musculoskeletal: Normal muscle tone and bulk. Neuro: cranial nerves II - XII grossly intact. Intact gross motor and sensory function. Psych: appropriate mood/affect. Skin: No pallor. Heme/lymph: No peripheral edema. Labs: WBC 10.44. CO2 15. Glucose 238. Lipase 22. Urinalysis negative for infection. Influenza swab negative. Other Data: None. Impression and plan: Acute dehydration Intractable nausea and vomiting Acute gastroenteritis/colitis Ulcerative colitis, in remission H/o cardiac arrest from QT prolonging agent Hemorrhoids, bleeding LGIB, 2/2 above -IVF, prn antiemetics (no Zofran as it prolongs QT interval). -Resume home meds in AM. -stool panel. -clear liquid diet, ADAT. -Check AM labs. -VTE ppx - SCDs. -Code status - full. Observation status.
--- NOTE | 2018-07-02 17:08 | ASMTCMCOM ---
CM Note CM Note Notes: CM visit was triggerd by questions asked by RN during admit about, ever having thoughts of wishing she were . CM went to follow up with pt, she states she does sometimes feel like "not being here anymore" that it "comes and goes" CM asked when was the last time she had these thoughts, pt responded "last week" when asked what precipitates these feelings she states "financial things". CM asked if she had a plan, what would she do? Pt states she "would hang herself but has not acted on it" CM discussed conversation with RN and James from [facility], James will bring up information on outpt resources and talk to pt about coping skills. Date Signed: 07/02/2018 05:07 PM Electronically Signed By:Leyla Foley RN
--- NOTE | 2018-07-02 17:52 | ASMTCMCOM ---
CM Note CM Note Notes: DC Plan: Pt will likely dc home w/support of her when medically stable. RN to notifiy of [place] scale trigger and James from [facility] to f/u, CM available for any changes. Date Signed: 07/02/2018 05:52 PM Electronically Signed By:Leyla Foley RN
[2018-07-02] MEDS: CALCIUM CARBONATE 500 MG TAB PO SCH (20:50)
[2018-07-02] MEDS: CHOLECALCIFEROL VIT D3 1,000 UNITS TAB PO SCH (20:50)
[2018-07-02] MEDS ORDERED: PANTOPRAZOLE SODIUM 40 MG TAB PO SCH (21:00)
[2018-07-02] MEDS ORDERED: ASPIRIN 81 MG CHEWABLE TAB PO SCH (21:00)
[2018-07-03] MEDS: NS W/ 20 KCl/L 1,000 ML IV SCH (07:26)
[2018-07-03 07:36] VITALS: BP 108/78
[2018-07-03] MEDS ORDERED: ASCORBIC ACID 500 MG TAB PO SCH (09:00)
[2018-07-03] MEDS ORDERED: CYANO/VITAMIN B12 1000 MCG TAB PO SCH (09:00)
[2018-07-03] MEDS ORDERED: FLUoxetine 20 MG CAP PO SCH (09:00)
[2018-07-03] MEDS: CALCIUM CARBONATE 500 MG TAB PO SCH (09:52)
[2018-07-03] MEDS: CHOLECALCIFEROL VIT D3 1,000 UNITS TAB PO SCH (09:53)
--- NOTE | 2018-07-03 10:44 | PDDCSUM ---
Discharge Summary Discharge Summary: Date of Admission: 07/02/2018 Date of Discharge: 07/03/2018 Discharge Diagnoses: Acute gastroenteritis/colitis, improved Acute dehydration, resolved Nausea and vomiting, resolved Ulcerative colitis, in remission H/o cardiac arrest from QT prolonging agent Hemorrhoids LGIB, 2/2 hemorrhoids - resolved Admission Diagnoses: Acute dehydration Intractable nausea and vomiting Acute gastroenteritis/colitis Ulcerative colitis, in remission H/o cardiac arrest from QT prolonging agent Hemorrhoids, bleeding LGIB, 2/2 above Consultants: None. Hospital Course: The patient is a 67-year-old female who was admitted for acute dehydration secondary to suspected viral or toxinogenic gastroenteritis. Her had been ill with the same symptoms for several days prior to onset of her nausea, vomiting, and diarrhea.. Patient was given IV fluids and antiemetics in greatly improved over night. The next day she was tolerating an oral diet and no longer had diarrhea. Her vomiting had resolved. She was discharged home to continue recovering there. Physical Exam: Gen - alert, comfortable, in NAD. Abd - SND, nontender. Condition: Stable. Discharged to: Home. Pertinent tests/labs/imaging: N/A. Blood cultures-pending Medications: Please see med rec form. New medication-promethazine 25 mg tablets , 1 tablet p.o. Four times daily as needed for nausea. Special instructions: 1. [place] diet over the next 48 hr 2. No spicy fatty greasy foods. 3. Return if worse to the Emergency Department. Follow up: PCP in 1 week
--- NOTE | 2018-07-03 10:56 | ASMTLCPROG ---
Notes Note: Notes: Pt seen by [facility] clinician following responses on [place] Suicide screening tool. Pt tells clinician that she has thought about suicide for years, but has never acted on it. When asked if she knew how she would attempt it; she confirms that she has a plan, "hanging", but again has never had the intent or taken any actions towards enacting the plan, "like buying a rope". Pt reports that she last saw a therapist over 30 years ago, prior to mooving to [place]. She has taken Fluoxetine throughout this time. It is now being prescribed by her PCP; her dosage has been adjusted over the years and is now at 20mg. She did express interest in seeing a therapist and accepted resources from this clinician for both [facility] and [facility]. Pt does not appear to be a risk to herself at this time. Date Signed: 07/03/2018 10:55 AM Electronically Signed By:Sandy Mccord
--- NOTE | 2018-07-03 11:39 | ASDISCHSUM ---
Discharge Information Plan Status:Home with No Needs Medically Cleared to Leave:07/02/2018 Discharge Date:07/02/2018 CM D/C Disposition:Home, Routine, Self-Care ADT D/C Disposition: Projected Discharge Date:07/02/2018 Transportation at D/C:Family Discharge Delay Reason: Follow-Up Date:07/02/2018 Discharge Slot: Final Diagnosis:gastroenteritis Placement Information Patient Contact Information Contact Name:SAY Relationship: Address:[address] City:[place] Alternate Phone: State/Zip Code:[place] [address] Email: Financial Information Financial Class:Medicare Primary Plan Desc:MEDICARE OUTPATIENT Primary Plan Number:[id number] Secondary Plan Desc:BRUCE/ADELAIDA SUPPLEMENT Secondary Plan Number:[id number] Assessment Information LACE LACE Length of stay for Answers: 1 day current admission Acuity / Level of Answers: No Care: Did the patient have an inpatient admission? Comorbidities - select Answers: Other Notes: Gerd all that apply # of Emergency department Answers: 1-2 visits in the last 6 months Social determinants Answers: Mental health diagnosis (anxiety, depression, pers onality disorders, etc.) Score: 6 Date Signed: 07/03/2018 11:39 AM Electronically Signed By:Kirstie Mirza [facility] Progress Note CM Note Note Notes: CM visit was triggerd by questions asked by RN during admit about, ever having thoughts of wishing she were . CM went to follow up with pt, she states she does sometimes feel like "not being here anymore" that it "comes and goes" CM asked when was the last time she had these thoughts, pt responded "last week" when asked what precipitates these feelings she states "financial things". CM asked if she had a plan, what would she do? Pt states she "would hang herself but has not acted on it" CM discussed conversation with RN and James from [facility], James will bring up information on outpt resources and talk to pt about coping skills. Date Signed: 07/02/2018 05:07 PM Electronically Signed By:Leyla Foley RN [facility] Progress Note CM Note CM Note Notes: DC Plan: Pt will likely dc home w/support of her when medically stable. RN to notifgeorge JACKSON of [facility] and James from [facility] to f/u, CM available for any changes. Date Signed: 07/02/2018 05:52 PM Electronically Signed By:Leyla Foley RN [facility] Progress Note Notes Note: Notes: Pt seen by [facility] clinician following responses on [place] Suicide screening tool. Pt tells clinician that she has thought about suicide for years, but has never acted on it. When asked if she knew how she would attempt it; she confirms that she has a plan, "hanging", but again has never had the intent or taken any actions towards enacting the plan, "like buying a rope". Pt reports that she last saw a therapist over 30 years ago, prior to mooving to [place]. She has taken Fluoxetine throughout this time. It is now being prescribed by her PCP; her dosage has been adjusted over the years and is now at 20mg. She did express interest in seeing a therapist and accepted resources from this clinician for both [facility] and [facility]. Pt does not appear to be a risk to herself at this time. Date Signed: 07/03/2018 10:55 AM Electronically Signed By:Sandy Mccord Case Management Discharge Plan Note Case Management Discharge Discharge Order Complete? Answers: Yes Patient to Obtain Answers: via Family Medications Transportation Arranged Answers: Family/Friends Family Notified Answers: Yes Notes: in the room Discharge Comments Notes: Pt discharged independently with support from and is comfortable with this plan. [facility] saw pt after trigger from suicide screening tool. [facility] confirms pt is not a danger to self at this time. No therapies ordered. Spoke with pt and RN in the room. No further CM needs noted at this time. Date Signed: 07/03/2018 11:38 AM Electronically Signed By:Kirstie Mirza Intervention Information
== END 2018-07-03 12:02 | disposition home or self-care (01) ==
LOC: F3E 10:12
PROVIDERS: ADMIT Internal Medicine; ATTEND Internal Medicine
DX: K52.9 Noninfective gastroenteritis and colitis, unspecified (principal); E86.0 Dehydration; K64.9 Unspecified hemorrhoids; K62.5 Hemorrhage of anus and rectum; K21.9 Gastro-esophageal reflux disease without esophagitis; J45.909 Unspecified asthma, uncomplicated; Z87.19 Personal history of other diseases of the digestive system; Z86.74 Personal history of sudden cardiac arrest; Z82.49 Family history of ischemic heart disease and other diseases of the circulatory system; Z96.642 Presence of left artificial hip joint; Z96.651 Presence of right artificial knee joint; Z23 Encounter for immunization
CPT/HCPCS: 90686; 96361; 96374; 96376; 99285; G0008; G0378; J2550

== ENCOUNTER → 2018-08-18 | Outpatient (CLI) | payer OTHER, MEDICARE | LOC: BMCIMAGING 08:59 | PROVIDERS: ATTEND Orthopaedic Surgery | DX: Z09 Encounter for follow-up examination after completed treatment for conditions other than malignant neoplasm (principal); Z96.651 Presence of right artificial knee joint ==

== ENCOUNTER → 2018-10-08 | Outpatient (CLI) | payer OTHER, MEDICARE | LOC: BMCIMAGING 10:08 | PROVIDERS: ATTEND Internal Medicine | DX: Z13.820 Encounter for screening for osteoporosis (principal); M85.80 Other specified disorders of bone density and structure, unspecified site; Z96.642 Presence of left artificial hip joint ==